=== PATIENT | female | born 1950 | race Caucasian/White ===

== ENCOUNTER 2025-01-25 09:16 | Outpatient (REF) | payer MEDICARE, BC, SELFPAY ==
--- NOTE | ~2025-01-25 | XR_ITS ---
CLINICAL HISTORY: M25.562 - Pain in left knee 3 view left knee Comparison: None Findings: Bones intact. No dislocations. There are osteoarthritic changes involving all 3 compartments and associated with medial joint space narrowing. No joint effusion. No radiopaque foreign body. IMPRESSION: There are osteoarthritic changes involving all 3 compartments and associated with medial joint space narrowing. This document has been electronically signed by: Milton aH MD on 01/27/2025 06:05:44
--- NOTE | ~2025-01-25 | XR_ITS ---
CLINICAL HISTORY: M25.561 - Pain in right knee 3 view right knee Comparison: None Findings: No acute fracture. No dislocation. Degenerative changes in the lateral tibiofemoral compartment and patellofemoral compartment. No erosions. No joint effusion. Atherosclerotic vascular disease. Surgical clips in soft tissues posteromedially. IMPRESSION: 1. No acute findings. 2. Degenerative changes. This document has been electronically signed by: Kait Webster MD on 01/26/2025 17:07:48
--- OUTSIDE RECORDS SUMMARY | 2025-01-26 10:14 | XMS_ITS | Encounter Summary ---
Author Organization [facility] Address [address] [place] [address] Care Team Providers Care Mcat Tutor Name Role Phone Jacquelin Santacruz Primary Care Provider [phone] Encounter Details Date Type Department Care Team (Late st Contact Info) Description 01/14/2024 Orders Only [facility] Interventional Radiology [address] [place] [address] Elvin Rose MD [address] [place], [place] [phone] Social History Tobacco Use Types Packs/Day Years [...] Info) Description 04/13/2025 11:15 AM EDT Appointment [facility] Otolaryngology Clinic [address] [place], [place] [phone] Sander Machine: Clifford Cisneros Jr., MD [address] [place] [address] documented as of this encounter Visit Diagnoses Not on filedocumented in this encounter Care Teams Mcat Tutor Relationship Specialty Start Date End Date Jacquelin Santacruz [address] [place] [address] PCP - General 01/07/24 documented as of this encounter
--- OUTSIDE RECORDS SUMMARY | 2025-01-26 10:14 | XMS_ITS | Clinical Summary ---
Author Organization [facility] Address [address] [place] [address] Care Team Providers Care Food Services Manager Name Role Phone Santacruz Jacquelin Lynn Primary Care Provider [phone] Allergies Active Allergy Reactions Criticality Noted Date [...] 11:59 PM [facility] Hospital Encounter [facility] Otolaryngology Clinic [address] [place] [address] Foreign Student Adviser: Jaelyn Pat, AURORA Santo Squamous cell carcinoma [...] Description 04/13/2025 11:15 AM EDT Appointment [facility] Otol[facility]ology Clinic [address] [place] [address] Foreign Student Adviser: Clifford Cisneros Jr., MD [address] [place] [address] [phone] Health Maintenance Due Date Last Done Comments [...] this topic Medical Devices Implanted Type Area Ornamental Plaster Sticker Device Identifier Shelf Expiration Date Model / Serial / Lot Labor Gang Supervisor Anastomosis Microvascular [place] 4.0mm [place] - [id number] Implanted:Qty: 1 on 02/10/2024 by Jerry Bruce MD at [facility] Implant Left: Neck [employer]OVIS [employer]IANCE 07/01/2028 [id number] / / [id number] Procedures * Due to [place] [employer] law, this organization might not be sharing negative HIV tests. Procedure Name Priority Date/Time Associated Diagnosis Comments BASIC METABOLIC PANEL Routine 02/17/2024 3:19 AM EDT HEMOGLOBIN A1C Routine 02/12/2024 2:51 AM EDT from Last 3 Months or Most Recently Relevant to Health Maintenance Results * Due to [place] [employer] law, this organization might not be sharing negative HIV tests. * (ABNORMAL) Basic Metabolic Panel (02/17/2024 3:19 AM EDT) NA 134(L) 135 - 145 mmol/L 02/17/2024 4:27 AM EDT [facility] K 4.3 3.5 - 5.3 mmol/L 02/17/2024 4:27 AM EDT [facility] Cl 103 97 - 110 mmol/L 02/17/2024 4:27 AM EDT [facility] CO2 23(L) 24 - 32 mmol/L 02/17/2024 4:27 AM EDT [facility] BUN 23 7 - 23 mg/dL 02/17/2024 4:27 AM EDT [facility] Creatinine 0.63 0.50 - 1.20 mg/dL 02/17/2024 4:27 AM EDT [facility] Glucose 248(H) 70 - 99 mg/dL 02/17/2024 4:27 AM EDT [facility] Calcium 8.4(L) 8.7 - 10.7 mg/dL 02/17/2024 4:27 AM EDT [facility] Anion Gap 8 5 - 15 02/17/2024 4:27 AM EDT [facility] eGFR >90 >=60 mL/min/1. 73m2 02/17/2024 4:27 AM EDT [facility] Comment:The estimated glomer ular [...] MD LAB BLOOD ORDERABLES Final Res ult [facility] [address] [place] [address], * (ABNORMAL) Hemoglobin A1c (02/12/2024 2:51 AM EDT) Hemoglobin A1C 7.3(H) <5.7 % of total Hgb 02/18/2024 8:35 AM EDT [facility] Comment: For someone without known diabetes, a [...] (MG/DL) 163 mg/dL 02/18/2024 8:35 AM EDT [facility] eAG (MMOL/L) 9.0 mmol/L 02/18/2024 8:35 AM EDT [facility] Comment: ? This test was performed on the Sal larissa c503 platform. Effective 12/29/23, a change in test platforms from the [place] Tarring Machine Operator to the Sal larissa c503 may have shifted HbA1c results compared to historical results. Based on laboratory validation testing conducted at [facility], the Sal platform relative to the [place] [...] 2:51 AM EDT 02/12/2024 3:02 AM EDT [facility] 02/18/2024 8:35 AM EDT [facility] Received Date: us Lisandro Norwodo NP LAB BLOOD ORDERABLES F inal Result [facility] [place] [address] [facility] 3rd Floor, [place] [address], [facility] [address] [facility] [address], [place] [address], [place] [phone] from Last 3 Months or Most Recently Relevant to Health Maintenance Insurance MEDICARE [facility] FEDERAL Advance Directives Documents on File Type Date Recorded Patient Sales Representative Facility Services Expl anation Health Care Proxy 02/03/2024 10:29 [...] Alternate Health Care Agen t Care Teams Food Services Manager Relationship Specialty Start Date End Date Jacquelin Santacruz [address] [place] [address] PCP - General 01/07/24
--- OUTSIDE RECORDS SUMMARY | 2025-01-26 10:14 | XMS_ITS | Referral Summary ---
Author Organization [facility] Address [address] [place] [address] Care Team Providers Care Event Marketing Intern Name Role Phone Jacquelin Santacruz Leah Primary Care Provider [phone] Encounters Date Type Department Care Team Description 12/16/2024 9:21 AM EST - 12/16/2024 11:59 PM [facility] Hospital Encounter [facility] Otolaryngology Clinic [address] [place] [phone] [place] Machine Operator: Jaelyn Pat, AURORA Santo Squamous cell carcinoma [...] Description 04/13/2025 11:15 AM EDT Appointment [facility] Ot[facility]ology Clinic [address] [place] [address] [place] Machine Operator: Clifford Cisneros Jr., MD [address] [place] [address] Medical Devices Implanted Type Area Rotary Surface Grinder Device Identifier Shelf Expiration Date Model / Serial / Lot Concession Stand Attendant Anastomosis Microvascular [place] 4.0mm [place] - [id number] Implanted:Qty: 1 on 02/10/2024 by Jerry Bruce MD at [facility] Implant Left: Neck [employer]OVIS [employer]IANCE 07/01/2028 [id number] / / [id number] Procedures * Due to [place] [employer] law, this organization might not be sharing negative HIV tests. Procedure Name Priority Date/Time Associated Diagnosis Comments BASIC METABOLIC PANEL Routine 02/17/2024 3:19 AM EDT HEMOGLOBIN A1C Routine 02/12/2024 2:51 AM EDT from Last 3 Months or Most Recently Relevant to Health Maintenance Results * Due to [place] [employer] law, this organization might not be sharing negative HIV tests. * (ABNORMAL) Basic Metabolic Panel (02/17/2024 3:19 AM EDT) NA 134(L) 135 - 145 mmol/L 02/17/2024 4:27 AM EDT [facility] K 4.3 3.5 - 5.3 mmol/L 02/17/2024 4:27 AM EDT [facility] Cl 103 97 - 110 mmol/L 02/17/2024 4:27 AM EDT [facility] CO2 23(L) 24 - 32 mmol/L 02/17/2024 4:27 AM EDT [facility] BUN 23 7 - 23 mg/dL 02/17/2024 4:27 AM EDT [facility] Creatinine 0.63 0.50 - 1.20 mg/dL 02/17/2024 4:27 AM EDT [facility] Glucose 248(H) 70 - 99 mg/dL 02/17/2024 4:27 AM EDT [facility] Calcium 8.4(L) 8.7 - 10.7 mg/dL 02/17/2024 4:27 AM EDT [facility] Anion Gap 8 5 - 15 02/17/2024 4:27 AM EDT [facility] eGFR >90 >=60 mL/min/1. 73m2 02/17/2024 4:27 AM EDT [facility] Comment:The estimated glomer ular [...] MD LAB BLOOD ORDERABLES Final Res ult [facility] [address] [place] [address], * (ABNORMAL) Hemoglobin A1c (02/12/2024 2:51 AM EDT) Hemoglobin A1C 7.3(H) <5.7 % of total Hgb 02/18/2024 8:35 AM EDT [facility] Comment: For someone without known diabetes, a [...] (MG/DL) 163 mg/dL 02/18/2024 8:35 AM EDT [facility] eAG (MMOL/L) 9.0 mmol/L 02/18/2024 8:35 AM EDT [facility] Comment: ? This test was performed on the Sal larissa c503 platform. Effective 12/29/23, a change in test platforms from the [place] School Bus Attendant to the Sal larissa c503 may have shifted HbA1c results compared to historical results. Based on laboratory validation testing conducted at [facility], the Sal platform relative to the [place] [...] AM EDT 02/12/2024 3:02 AM EDT Narrative [facility] - 02/18/2024 8:35 AM EDT [facility] Received Date: us Lisandro Norwood NP LAB BLOOD ORDERABLES F inal Result [facility]ITAL[facility] [address] [facility] 3rd Floor, [place] [address], [facility] [address] [facility] 3rd [address], [place] [address], from Last 3 Months or Most Recently Relevant to Health Maintenance Insurance MEDICARE [facility] FEDERAL Advance Directives Documents on File Type Date Recorded Patient Batting Machine Operator Insulation Expl anation Health Care Proxy 02/03/2024 10:29 [...] Alternate Health Care Agen t Care Teams Event Marketing Intern Relationship Specialty Start Date End Date Jacquelin Santacruz [address] [place] [phone] PCP - General 01/07/24
--- OUTSIDE RECORDS SUMMARY | 2025-01-26 10:14 | XMS_ITS | Encounter Summary ---
Author Organization [facility] Address [address] [place] [address] Care Team Providers Care Recreation Supervisor Name Role Phone Jacquelin Santacruz Leah Primary Care Provider [phone] Encounter Details Date Type Department Care Team (Late st Contact Info) Description 03/23/2024 Orders Only [facility] Interventional Radiology [address] [place] [address] Naveed Florence MD [address] [place], [place] [phone] Social History Tobacco Use Types Packs/Day Years [...] Info) Description 04/13/2025 11:15 AM EDT Appointment [facility] Otolaryngology Clinic [address] [place] [address] Catalogue Maker: Clifford Cisneros Jr., MD [address] [place] [phone] documented as of this encounter Visit Diagnoses Not on filedocumented in this encounter Care Teams Recreation Supervisor Relationship Specialty Start Date End Date Jacquelin Santacruz [address] [place] [address] PCP - General 01/07/24 documented as of this encounter
--- OUTSIDE RECORDS SUMMARY | 2025-01-26 10:14 | XMS_ITS ---
Author Organization [facility] Address [address] [place] [address] Care Team Providers Care Recording Studio Intern Name Role Phone Jacquelin Santacruz Leah Primary Care Provider [phone] Active Problems Problem Noted Date Diagnosed Date [...] TotalDLP 749 mGy 749 mGy 0 mGy [id number] 9.3 mSv 9.3 mSv 0 mSv CTDIvol Max 23.8 mGy 23.8 mGy 0 mGy CTDIvol Min 23.8 mGy 23.8 mGy 0 mGy
--- OUTSIDE RECORDS SUMMARY | 2025-01-26 10:14 | XMS_ITS | Encounter Summary ---
Author Organization [facility] Address [address] [place] [address] Care Team Providers Care Box Finisher Name Role Phone Jacquelin Santacruz Primary Care Provider [phone] Encounter Details Date Type Department Care Team (Late st Contact Info) Description 06/14/2024 Orders Only [facility] Interventional Radiology [address] [place] [address] Dereje Bravo MD [address] [place] [address] [phone] Social History Tobacco Use Types Packs/Day Years [...] Info) Description 04/13/2025 11:15 AM EDT Appointment [facility] Otolaryngology Clinic [address] [place] [address] Cook At School: Clifford Cisneros Jr., MD [address] [place] [address] documented as of this encounter Visit Diagnoses Not on filedocumented in this encounter Care Teams Box Finisher Relationship Specialty Start Date End Date Jacquelin Santacruz [address] [place] [address] PCP - General 01/07/24 documented as of this encounter
== END 2025-01-25 09:17 | disposition home or self-care (01) ==
LOC: HO.HOSX 09:16
PROVIDERS: Visit Provider Orthopaedic Surgery
DX: M25.561 Pain in right knee (principal); M25.562 Pain in left knee; M17.0 Bilateral primary osteoarthritis of knee
CPT/HCPCS: 73562; 99202

== ENCOUNTER 2025-01-25 09:42 | Outpatient (AMB) | payer MEDICARE, SELFPAY ==
--- NOTE | 2025-01-25 09:48 | A.OFFVIS_ITS ---
Vital Signs 01/25/25 09:58 Height 5 ft 3 in Weight 162 lb BMI 28.7 Intake Visit Reasons: Bilateral knee pains Intake Note: Rosario is a 74 year old female who presents with complaints of progressively worsening bilateral knee pains. She describes her pains as sharp and severe in nature. Her pains have gotten worse over the last 5 years in spite of continued non operative treatments. She has had cortisone injections in the past given by another provider. She states that the most recent cortisone injections gave her no relief. She has failed the last 3 months of conservative treatment which has included a home exercise program, physical therapy exercises, Tylenol, anti- inflammatory medicines and topical creams. She wishes to hold off on total knee replacement surgery if at all possible. At this point her bilateral knee pains are interfering with her activities of daily living and her ability to sleep well through the night. Allergies celecoxib [From CELEBREX] Allergy (Unknown, Unverified 01/25/25 09:51) HIVES Sulfa (Sulfonamide Antibiotics) [SULFA(SULFONAMIDE ANTIBIOTICS)] Allergy (Unknown, Unverified 01/25/25 09:51) HIVES Medication List - Last Reconciled 01/25/25 by Pieter Nation MD acetaminophen (Tylenol Extra Strength) 500 mg PO ONCE PRN aspirin 81 mg PO DAILY dulaglutide (Trulicity) mg subcut QWEEK levothyroxine 100 mcg PO DAILY metformin 1,000 mg PO BID metoprolol tartrate mg PO pantoprazole 40 mg PO DAILY rosuvastatin 40 mg PO DAILY Physical Exam Vital Signs: BMI result Body Mass Index 28.7 Const Other: Well-nourished well-developed very friendly female awake alert and oriented x3 in no acute distress Extrem Other: Bilateral lower extremity examination shows good capillary refill, no skin lesions noted, normal sensation light touch Bilateral knee examination shows minimal effusions, palpable crepitus with range of motion, pain with range of motion, no instability Results Reviewed Results Reviewed: X-rays of the patient's bilateral knee show joint space narrowing, subchondral sclerosis, no acute bony abnormalities Assessment & Plan Assessment & Plan (1) Osteoarthritis of left knee: Code(s): M17.12 - Unilateral primary osteoarthritis, left knee Category: Medical (2) Osteoarthritis of right knee: Code(s): M17.11 - Unilateral primary osteoarthritis, right knee Category: Medical Plan Ms. Mejía presents with progressively worsening bilateral knee pains due to osteoarthritis. I had a lengthy discussion with the patient regarding the treatment options. She wishes to hold off on surgery for as long as possible. I agree with this plan. She has not gotten good relief from cortisone injections in the past. Thus, I will see whether or not the patient's insurance company will cover a viscosupplementation injection, such as Durolane, for both of her knees. I will see her back once the injections are available. If she fails continued non operative treatments we will further discuss the risks and benefits of total knee replacement surgery. Feel free to call me at any time should questions regarding her orthopedic management arise. Thank you very much for asking me to see this very friendly patient. I spent 22 minutes in reviewing the patient's records and imaging studies, seeing the patient and documenting in the medical record. Orders: Orders XR knee LT 3V Today M25.562 - Pain in left knee XR knee RT 3V Today M25.561 - Pain in right knee Coding Level of Care Code New Pt Level 3 (51986) Complex EM visit Add On G2211 Diagnoses Osteoarthritis of left knee M17.12 Osteoarthritis of right knee M17.11
[2025-01-25 09:58] VITALS: BMI 28.7
--- OUTSIDE RECORDS SUMMARY | 2025-01-25 11:07 | XMS_ITS | Encounter Summary ---
Author Organization [facility] Address [address] [place] [address] Care Team Providers Care Paralegal Internship Name Role Phone Jacquelin Santacruz Primary Care Provider [phone] Encounter Details Date Type Department Care Team (Late st Contact Info) Description 01/14/2024 Orders Only [facility] Interventional Radiology [address] [place] [address] Elvin Rose MD [address] [place], [place] [phone] Social History Tobacco Use Types Packs/Day Years Used Date Smoking Tobacco: Former Cigarettes Smokeless Tobacco: Never Alcohol Use Standard Drinks/Week Comments Not Currently 0 (1 standard drink = 0.6 oz pur e alcohol) Comments Unknown Sex and Gender Information Value Date Recorded Sex Assigned at Female 02/05/2024 10:13 AM EDT Legal Sex Female 4:20 PM EDT Gender Identity Female 02/05/2024 10:13 AM EDT Sexual Orientation Straight 02/05/2024 10 :13 AM EDT documented as of this encounter Plan of Treatment Upcoming Encounters Date Type Department Care Team (Late st Contact Info) Description 04/13/2025 11:15 AM EDT Appointment [facility] Otolaryngology Clinic [address], [place] [phone] Endocrinology Nurse: Clifford Cisneros Jr., MD [address] [place] [phone] documented as of this encounter Visit Diagnoses Not on filedocumented in this encounter Care Teams Paralegal Internship Relationship Specialty Start Date End Date Jacquelin Santacruz [address] [place] [address] PCP - General 01/07/24 documented as of this encounter
--- OUTSIDE RECORDS SUMMARY | 2025-01-25 11:07 | XMS_ITS | Encounter Summary ---
Author Organization [facility] Address [address] [place] [address] Care Team Providers Care Primer Inserting Machine Operator Name Role Phone Jacquelin Santacruz Leah Primary Care Provider [phone] Encounter Details Date Type Department Care Team (Late st Contact Info) Description 03/23/2024 Orders Only [facility] Interventional Radiology [address] [place] [phone] Naveed Florence MD [address] [place], [place] [phone] Social History Tobacco Use Types Packs/Day Years Used Date Smoking Tobacco: Former Cigarettes 1 40 1 965 - 2005 Smokeless Tobacco: Never Alcohol Use Standard Drinks/Week Comments Not Currently 0 (1 standard drink = 0.6 oz pur e alcohol) Comments No Sex and Gender Information Value Date Recorded Sex Assigned at Female 02/05/2024 10:13 AM EDT Legal Sex Female 4:20 PM EDT Gender Identity Female 02/05/2024 10:13 AM EDT Sexual Orientation Straight 02/05/2024 10 :13 AM EDT documented as of this encounter Plan of Treatment Upcoming Encounters Date Type Department Care Team (Late st Contact Info) Description 04/13/2025 11:15 AM EDT Appointment [facility] Otolaryngology Clinic [address] [place] [address] Vegetable Worker: Clifford Cisneros Jr., MD [address] [place] [phone] documented as of this encounter Visit Diagnoses Not on filedocumented in this encounter Care Teams Primer Inserting Machine Operator Relationship Specialty Start Date End Date Jacquelin Santacruz [address] [place] [address] PCP - General 01/07/24 documented as of this encounter
--- OUTSIDE RECORDS SUMMARY | 2025-01-25 11:07 | XMS_ITS | Encounter Summary ---
Author Organization [facility] Address [address] [place] [address] Care Team Providers Care Paint Maker Name Role Phone Jacquelin Santacruz Primary Care Provider [phone] Encounter Details Date Type Department Care Team (Late st Contact Info) Description 06/14/2024 Orders Only [facility] Interventional Radiology [address] [place] [phone] Dereje Bravo MD [address] [place] [address] [phone] Social History Tobacco Use Types Packs/Day Years [...] Info) Description 04/13/2025 11:15 AM EDT Appointment [facility] Otolaryngology Clinic [address] [place] [address] President Ceo & Founder: Clifford Cisneros Jr., MD [address] [place] [address] documented as of this encounter Visit Diagnoses Not on filedocumented in this encounter Care Teams Paint Maker Relationship Specialty Start Date End Date Jacquelin Santacruz [address] [place] [address] PCP - General 01/07/24 documented as of this encounter
--- OUTSIDE RECORDS SUMMARY | 2025-01-25 11:07 | XMS_ITS ---
Author Organization [facility] Address [address] [place] [address] Care Team Providers Care Motel Front Desk Attendant Name Role Phone Jacquelin Santacruz Leah Primary Care Provider Active Problems Problem Noted Date Diagnosed Date Hypothyroid 02/11/2024 Status post tracheostomy 02/11/2024 Squamous cell carcinoma of floor of mouth 2023 Primary osteoarthritis of right knee 08/02/2021 Overview (02/11/2024): Last Assessment & Plan: See #1 for details Vitamin D insufficiency 08/02/2021 Overview (02/11/2024): Last Assessment & Plan: Increase daily vitamin D to 3000 units daily until the end of December 2021 to optimize serum level. Primary osteoarthritis of left knee 04/26/2021 Overview (02/11/2024): Last Assessment & Plan: Procedure: After an informed oral consent, under sterile conditions using Ethyl chloride spray for local anesthesia I have injected 40 mg DepoMedrol and 2 cc 1% Lidocaine into Left knee from medial approach uneventfully. Details of post-procedure care were explained to the patient in the office and given in writing. Provider: Dede Hope MD Patient: Rosario Mejía : 1950 Date: 09/03/2021 Lumbar spinal stenosis 06/21/2019 Overview (02/11/2024): Last Assessment & Plan: As I explained to her today I am suspicious that her bilateral nocturnal lower extremity pain is secondary to radiculopathy from her lumbar spinal stenosis. I reviewed her 2019 lumbar MRI indicating progressive anterolisthesis of L5 on S1 as well as compression of L3 and L4 nerve root secondary to ligamentum flavum hypertrophy as well as swollen disc material and facet arthropathy. Appropriate sleep position, use of tramadol was discussed and an office visit will be arranged to discern the contribution of pain from radiculopathy and from primary knee disease. All questions were answered and 15 minutes were spent on this telephone/telemedicine visit in direct contact with the patient. 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 She should remain on aspirin lifelong. We'll continue to optimize her other cardiac risk factors. Reviewed recent echo and stress test. Patient denies any progressive dyspnea, states breathing is the same as it has been for many years. Benign essential hypertension 01/15/2018 Overview (02/11/2024): Last Assessment & Plan: Good control on current antihypertensive regimen. No changes indicated today. Type 2 diabetes mellitus without complication Overview (02/11/2024): Last Assessment & Plan: Needs better glycemic control. Goal A1c less than 7. Muscle cramps 11/20/2017 Overview (02/11/2024): Last Assessment & Plan: Proper hydration, well-balanced nutritionally diet-rich in fruits, vegetables, vitamins, micro and ultra elements. Gentle, regular stretching, muscle strengthening exercises. Carefully continue warm bath or shower and magnesium tablet at nighttime in addition to consideration for assuring proper iron intake and if not better formal sleep study to check for restless leg syndrome Rheumatoid arthritis 11/20/2017 Overview (02/11/2024): Last Assessment & Plan: Generally stable and not in need of disease modifying antirheumatic drugs. She will call me if she has a painful flare. Hyperlipidemia 10/21/2017 Overview (02/11/2024): Last Assessment & Plan: Triglycerides are still elevated but much improved since last lipid panel profile. LDL at 6. Discussed better glycemic control will help to further normalize triglyceride levels. Current Treatment and Therapy Plans No current plan information found. Past Treatment and Therapy Plans No past plan information found. Lifetime Dose Tracking * Chemical Lifetime Dose Automatic Entry Manual Entr y TotalDLP 749 mGy 749 mGy 0 mGy CNHS280 9.3 mSv 9.3 mSv 0 mSv CTDIvol Max 23.8 mGy 23.8 mGy 0 mGy CTDIvol Min 23.8 mGy 23.8 mGy 0 mGy
--- OUTSIDE RECORDS SUMMARY | 2025-01-25 11:07 | XMS_ITS | Clinical Summary ---
Author Organization [facility] Address [address] [place] [address] Care Team Providers Care Engraver Set Up Operator Name Role Phone Santacruz Jacquelin Lynn Primary Care Provider [phone] Allergies Active Allergy Reactions Criticality Noted Date Comments Celecoxib Dermatitis Medium 11/20/2017 Medications levothyroxine (SYNTHROID, LEVOTHROID) 137 mcg tablet 1 tablet on an empty stomach in the morning Active metFORMIN (GLUCOPHAGE) 1,000 mg tablet Take 1 tablet by mouth 2 times a day. Active metoprolol tartrate (LOPRESSOR) 100 mg tablet Take 100 mg by mouth 3 times daily. 03/12/[address] (PROTONIX) 40 mg tablet Take 40 mg by mouth once a day. Active cyanocobalamin 1,000 mcg tablet Take 500 mcg by mouth daily. Active rosuvastatin (CRESTOR) 40 mg tablet Take 1 tablet by mouth once a day. 07/18/2023 Active aspirin 81 mg EC tablet Take 81 mg by mouth daily. Active cholecalciferol (VITAMIN D3) 2,000 unit capsule Take by mouth 2 times daily. Active diphenhydrAMINE -acetaminophen (Tylenol PM Extra Strength) 25-500 mg tablet Take 1 tablet by mouth once daily as needed. Active multivitamin (THERAGRAN) tablet Take 1 tablet by mouth once a day. Active Trulicity 0.75 mg/0.5 mL injection dose SMARTSI Pre-Filled Pen Syringe SUB-Q Once a Week 05/24/2024 Active Active Problems Problem Noted Date Diagnosed Date [...] will help to further normalize triglyceride levels. Encounters Date Type Department Care Team Description 12/16/2024 9:21 AM EST - 12/16/2024 11:59 PM [facility] Hospital Encounter [facility] Otolaryngology Clinic [address] [place] [phone] Community Marketing Manager: Jaelyn Pat, [facility] Squamous cell carcinoma of floor of mouth (Primary Dx) Discharge Disposition: Home or Self Care (01) from Last 3 Months Family History Medical History Relation Name Comments Alcohol abuse Father Cancer Mother colon Relation Name Status Comments Father Mother Social History Tobacco Use Types Packs/Day Years Used Date Smoking Tobacco: Former Cigarettes 1 40 1 965 - 2005 Smokeless Tobacco: Never Tobacco Cessation:Counseling Given: Not Answered Alcohol Use Standard Drinks/Week Comments Not Currently 0 (1 standard drink = 0.6 oz pur e alcohol) Comments No Sex and Gender Information Value Date Recorded Sex Assigned at Female 02/05/2024 10:13 AM EDT Legal Sex Female 4:20 PM EDT Gender Identity Female 02/05/2024 10:13 AM EDT Sexual Orientation Straight 02/05/2024 10 :13 AM EDT Last Filed Vital Signs Vital Sign Reading Time Taken Comments Blood Pressure 123/76 07/07/2024 11:23 AM EDT Pulse 89 07/07/2024 11:23 AM EDT Temperature 36.6 ??C (97.9 ??F) 07/07/2024 11:23 AM E DT Respiratory Rate 17 02/19/2024 1:17 PM EDT Oxygen Saturation 97% 03/29/2024 3:14 PM EDT Inhaled Oxygen Concentration - - Weight 83.2 kg (183 lb 6.8 oz) 02/19/2024 5:34 A M EDT Height 163 cm (5' 4.17 ) 02/17/2024 2:00 PM EDT Body Mass Index 31.31 02/17/2024 2:00 PM EDT Plan of Treatment Upcoming Encounters Date Type Department Care Team (Late st Contact Info) Description 04/13/2025 11:15 AM EDT Appointment [facility] Otolaryngology Clinic [address] [place] [phone] Community Marketing Manager: Clifford Cisneros Jr., MD [address] [place] [phone] Health Maintenance Due Date Last Done Comments Cologuard 1950 Colon Cancer Screening 1950 Colonoscopy 1950 FOBT / Fit Test 1950 Hepatitis C Screening 1950 Sigmoidoscopy 1950 Medicare AWV 1951 Ophthalmology Exam 1961 Urine Microalbumin 1961 Mammogram 1991 Alcohol/Substance Use Screening 10/27/2024 09/08/2024 Depression Screening and Follow-Up 10/27/2024 Health Care Proxy Review 10/27/2024 Social Drivers of Health Annual Screening 10/27/2024 COVID-19 Vaccine (8 - Pfizer risk 2023- season) 2024 06/30/2024, 08/02/2023, 08/02/2023, Additional history exists Hemoglobin A1C 01/02/2025 07/05/2024, 02/12/2024 Basic Metabolic Panel 08/01/2025 08/01/2024 , 07/05/2024, 02/17/2024, Additional history exists DTaP,Tdap,and Td Vaccines (4 - Td or Tdap) 09/30/2032 09/30/2022, 08/22/2012, 03/28/2009 Zoster Vaccines Completed 07/09/2021, 04/26, 09/01/2012 Pneumococcal Vaccine: 50+ Years Completed 09/26/2021, 09/29/2018, 10/17/2015 RSV Vaccine (60+ years old and patients) Completed 07/21/2023 Osteoporosis Screening Completed 08/27/2023 Influenza Vaccine Completed 06/30/2024, , 08/19/2022, Additional history exists Hepatitis B Vaccines Aged Out No long er eligible based on patient's age to complete this topic Medical Devices Implanted Type Area Analyst Microbiology Lab Device Identifier Shelf Expiration Date Model / Serial / Lot Perinatal Technician Anastomosis Microvascular [place] 4.0mm [place] - [id number] Implanted:Qty: 1 on 02/10/2024 by Jerry Bruce MD at [facility] Implant Left: Neck [employer] 07/01/2028 [id number] / / [id number] Procedures * Due to [place] [employer] law, this organization might not be sharing negative HIV tests. Procedure Name Priority Date/Time Associated Diagnosis Comments BASIC METABOLIC PANEL Routine 02/17/2024 3:19 AM EDT HEMOGLOBIN A1C Routine 02/12/2024 2:51 AM EDT from Last 3 Months or Most Recently Relevant to Health Maintenance Results * Due to [place] [employer] law, this organization might not be sharing negative HIV tests. * (ABNORMAL) Basic Metabolic Panel (02/17/2024 3:19 AM EDT) NA 134(L) 135 - 145 mmol/L 02/17/2024 4:27 AM EDT [facility] K 4.3 3.5 - 5.3 mmol/L 02/17/2024 4:27 AM EDT [facility] Cl 103 97 - 110 mmol/L 02/17/2024 4:27 AM EDT [facility] CO2 23(L) 24 - 32 mmol/L 02/17/2024 4:27 AM EDT [facility] BUN 23 7 - 23 mg/dL 02/17/2024 4:27 AM EDT [facility] Creatinine 0.63 0.50 - 1.20 mg/dL 02/17/2024 4:27 AM EDT [facility] Glucose 248(H) 70 - 99 mg/dL 02/17/2024 4:27 AM EDT [facility] Calcium 8.4(L) 8.7 - 10.7 mg/dL 02/17/2024 4:27 AM EDT [facility] Anion Gap 8 5 - 15 02/17/2024 4:27 AM EDT [facility] eGFR >90 >=60 mL/min/1. 73m2 02/17/2024 4:[address] [facility] Comment:The estimated glomer ular filtration rate (eGFR) is calculated using a new formula developed by the NKF-ASN task force to eliminate race-based correction factors. The new formula uses serum/plasma creatinine, age, and gender to determine eGFR. A value below 60mls/min might indicate kidney disease and will be flagged. For additional information, see Brunilda et al, Am J Kidney Dis. 2021;79(2):268- 288, A Unifying Approach for GFR estimation: Recommendations of the NKF-ASN Task Force on Reassessing the Inclusion of Race in Diagnosing Kidney Disease . Blood Structure of peripheral vein / Unknown Venipuncture / Unknown 02/17/2024 3:19 AM EDT 02/17/2024 3:56 AM EDT us Juan Clark MD LAB BLOOD ORDERABLES Final Res ult [facility] [address] [place] [address], * (ABNORMAL) Hemoglobin A1c (02/12/2024 2:51 AM EDT) Hemoglobin A1C 7.3(H) <5.7 % of total Hgb 02/18/2024 8:35 AM EDT [facility] Comment: For someone without known diabetes, a hemoglobin A1c value of 6.5% or greater indicates that they may have diabetes and this should be confirmed with a follow-up test. For someone with known diabetes, a value <7% indicates that their diabetes is well controlled and a value greater than or equal to 7% indicates suboptimal control. A1c targets should be individualized based on duration of diabetes, age, comorbid conditions, and other considerations. Currently, no consensus exists regarding use of hemoglobin A1c for diagnosis of diabetes for children. ?? eAG (MG/DL) 163 mg/dL 02/18/2024 8:35 AM EDT [facility] eAG (MMOL/L) 9.0 mmol/L 02/18/2024 8:35 AM EDT [facility] Comment: ? This test was performed on the [employer] larissa c503 platform. Effective 12/29/23, a change in test platforms from the [place] [facility] to the [employer] larissa c503 may have shifted HbA1c results compared to historical results. Based on laboratory validation testing conducted at [facility], the Sal platform relative to the [place] platform had an average increase in HbA1c value of < or = 0.3%. This difference is within accepted variability established by the National Glycohemoglobin Standardization Program. Note that not all individuals will have had a shift in their results and direct comparisons between historical and current results for testing conducted on different platforms is not recommended. Blood Structure of peripheral vein / Unknown Venipuncture / Unknown 02/12/2024 2:51 AM EDT 02/12/2024 3:02 AM EDT [facility] 02/18/2024 8:35 AM EDT [facility] Received Date: us Lisandro Norwood NP LAB BLOOD ORDERABLES F inal Result DAISY [facility]NER [address], [place] [address], MyPublisher [facility] [address], [place] [address], [place] [phone] from Last 3 Months or Most Recently Relevant to Health Maintenance Insurance MEDICARE [facility] [employer] Advance Directives Documents on File Type Date Recorded Patient Field Instructor Expl anation Health Care Proxy 02/03/2024 10:29 AM 4 HEALTH CARE PROXY SCANNED IN * Full Code (Latest Code Status on File) Date Activated Date Inactivated Comments 02/10/2024 1:10 PM 02/19/2024 6:00 PM * Full Code Date Activated Date Inactivated Comments 02/10/2024 1:10 PM 02/10/2024 1:10 PM * Full Code Date Activated Date Inactivated Comments 02/10/2024 5:36 AM 02/10/2024 1:10 PM Healthcare Agents on File Name Relationship Healthcare Agent Relationship Communication Enriqueta Cueto Daughter Health Care Agent Eligio Chaparro Partner Alternate Health Care Agen t Care Teams Engraver Set Up Operator Relationship Specialty Start Date End Date Jacquelin Santacruz [address] [place] [phone] PCP - General 01/07/24
--- OUTSIDE RECORDS SUMMARY | 2025-01-25 11:07 | XMS_ITS | Referral Summary ---
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 Social History Tobacco Use Types Packs/Day Years [...] Info) Description 04/13/2025 11:15 AM EDT Appointment [facility] [address] [place] [address] Store Operations Specialist: Clifford Cisneros Jr., MD [address] [place] [address] Medical Devices Implanted Type Area Taper Machine Device Identifier Shelf Expiration Date Model / Serial / Lot Centrifugal Extractor Operator Anastomosis Microvascular [place] 4.0mm Lawrence - [id number] Implanted:Qty: 1 on 02/10/2024 by Jerry Bruce MD at [facility] Implant Left: Neck [employer]IANCE 07/01/2028 [id number] / / [id number] Procedures * Due to [place] [employer] law, this organization might not be sharing negative HIV tests. Procedure Name Priority Date/Time Associated Diagnosis Comments BASIC METABOLIC PANEL Routine 02/17/2024 3:19 AM EDT HEMOGLOBIN A1C Routine 02/12/2024 2:51 AM EDT from Last 3 Months or Most Recently Relevant to Health Maintenance Results * Due to [place] [employer] law, this organization might not be sharing negative HIV tests. * (ABNORMAL) Basic Metabolic Panel (02/17/2024 3:19 AM EDT) NA 134(L) 135 - 145 mmol/L 02/17/2024 4:27 AM EDT [facility] K 4.3 3.5 - 5.3 mmol/L 02/17/2024 4:27 AM EDT [facility] Cl 103 97 - 110 mmol/L 02/17/2024 4:27 AM EDT [facility] CO2 23(L) 24 - 32 mmol/L 02/17/2024 4:27 AM EDT [facility] BUN 23 7 - 23 mg/dL 02/17/2024 4:27 AM EDT [facility] Creatinine 0.63 0.50 - 1.20 mg/dL 02/17/2024 4:27 AM EDT [facility] Glucose 248(H) 70 - 99 mg/dL 02/17/2024 4:27 AM EDT [facility] Calcium 8.4(L) 8.7 - 10.7 mg/dL 02/17/2024 4:27 AM EDT [facility] Anion Gap 8 5 - 15 02/17/2024 4:27 AM EDT [facility] eGFR >90 >=60 mL/min/1. 73m2 02/17/2024 4:27 AM EDT [facility] Comment:The estimated glomer ular [...] MD LAB BLOOD ORDERABLES Final Res ult [facility] [address] [place] [address], * (ABNORMAL) Hemoglobin A1c (02/12/2024 2:51 AM EDT) Hemoglobin A1C 7.3(H) <5.7 % of total Hgb 02/18/2024 8:35 AM EDT [facility] Comment: For someone without known diabetes, a [...] (MG/DL) 163 mg/dL 02/18/2024 8:35 AM EDT [facility] eAG (MMOL/L) 9.0 mmol/L 02/18/2024 8:35 AM EDT [facility] Comment: ? This test was performed on the Sal larissa c503 platform. Effective 12/29/23, a change in test platforms from the [place] Hay Farmer to the Sal larissa c503 may have shifted HbA1c results compared to historical results. Based on laboratory validation testing conducted at [facility], the Sal platform relative to the [place] [...] 2:51 AM EDT 02/12/2024 3:02 AM EDT Narrative [facility] - 02/18/2024 8:35 AM EDT [facility] Received Date: us Lisandro Norwood NP LAB BLOOD ORDERABLES F inal Result [facility] [address] [facility] [address]rd Floor, [place] [address], [facility] [address] [facility] 3rd Floor, [place] [address], from Last 3 Months or Most Recently Relevant to Health Maintenance Insurance MEDICARE [facility] FEDERAL Advance Directives Documents on File Type Date Recorded Patient Returned Item Clerk Expl anation Health Care Proxy 02/03/2024 10:29 [...] Alternate Health Care Agen t Care Teams Shoe Patternmaker Relationship Specialty Start Date End Date Jacquelin Santacruz [address] [place] [phone] PCP - General 01/07/24
--- OUTSIDE RECORDS SUMMARY | 2025-01-25 11:07 | XMS_ITS ---
[facility] Name [facility] Encounters Encounter Type Encounter Reason Primary Diagnosis Location Date Emergency ABDOMINAL PAIN Unspecified abdo geri pain [facility] 08/01/2024 Care Team Organization Name Specialty Phone Email Start Date End Da te Terminated: [facility] 08/01/2024
== END 2025-01-25 10:16 | disposition home or self-care (01) ==
LOC: HO.HOS 09:42
PROVIDERS: PCP Internal Medicine; Visit Provider Orthopaedic Surgery
DX: M17.0 Bilateral primary osteoarthritis of knee (principal)
CPT/HCPCS: 99203; G2211

== ENCOUNTER → 2025-01-25 09:44 | Outpatient (BNV) | payer MEDICARE, BC, SELFPAY | PROVIDERS: Visit Provider Specialist | DX: M17.11 Unilateral primary osteoarthritis, right knee (principal) | CPT/HCPCS: 73562 ==

== ENCOUNTER 2025-02-02 09:51 | Outpatient (AMB) | payer MEDICARE, BC, SELFPAY ==
--- NOTE | 2025-02-02 09:55 | MHC.OFFVIS ---
Intake Visit Reasons: Bilateral knee pains Intake Note: Rosario is a 74 year old female who presents with complaints of progressively worsening bilateral knee pains. She describes her pains as sharp in nature. She has failed the last 3 months of conservative treatment which has included Tylenol, anti-inflammatory medicines and a home exercise program. She has had cortisone injections in the past which gave her minimal relief. She wishes to hold off on surgery if at all possible. Her bilateral knee pains are now interfering with her activities of daily living and her ability to sleep well through the night. Allergies celecoxib [From CELEBREX] Allergy (Unknown, Verified 02/02/25 09:58) HIVES Sulfa (Sulfonamide Antibiotics) [SULFA(SULFONAMIDE ANTIBIOTICS)] Allergy (Unknown, Verified 02/02/25 09:58) HIVES Medication List - Last Reconciled 02/02/25 by Pieter Nation MD acetaminophen (Tylenol Extra Strength) 500 mg PO ONCE PRN aspirin 81 mg PO DAILY dulaglutide (Trulicity) mg subcut QWEEK levothyroxine 100 mcg PO DAILY metformin 1,000 mg PO BID metoprolol tartrate mg PO pantoprazole 40 mg PO DAILY rosuvastatin 40 mg PO DAILY Physical Exam Const Other: Well-nourished well-developed very friendly female awake alert and oriented x3 in no acute distress Extrem Other: Bilateral lower extremity examination shows good capillary refill, no skin lesions noted, normal sensation light touch Bilateral knee examination shows minimal effusions, palpable crepitus range of motion, pain with range of motion, no instability Office Procedures AMB Joint Injection/Aspiration Joint Injection/Aspiration Primary Site: left knee Prep: site was prepped using aseptic technique Injected: 60 mg of (Durolane viscosupplementation) and 1% plain lidocaine Procedure: The patient tolerated the procedure well Coding 82798 - Large joint Procedure code (CPT) selection complete AMB Joint Injection/Aspiration Joint Injection/Aspiration Primary Site: right knee Prep: site was prepped using aseptic technique Injected: 60 mg of (Durolane viscosupplementation) and 1% plain lidocaine Procedure: The patient tolerated the procedure well Coding 73965 - Large joint Procedure code (CPT) selection complete Results Reviewed Results Reviewed: X-rays of the patient's bilateral knees taken previously show joint space narrowing, subchondral sclerosis, no acute bony abnormalities Assessment & Plan Assessment & Plan (1) Osteoarthritis of left knee: Code(s): M17.12 - Unilateral primary osteoarthritis, left knee Category: Medical (2) Osteoarthritis of right knee: Code(s): M17.11 - Unilateral primary osteoarthritis, right knee Category: Medical Plan Ms. Mejía presents with bilateral knee pains due to osteoarthritis. The risks and benefits of bilateral knee Durolane viscosupplementation injections were discussed at length with the patient. The patient wished to proceed. She tolerated the injections well. She will continue with her home exercise program. She will contact me prior to her follow-up appointment in 3 months should any questions or concerns arise. Feel free to call me at any time should questions regarding her orthopedic management arise. I spent 20 minutes in reviewing the patient's records and imaging studies, seeing the patient and documenting in the medical record. Orders: Orders AMB Joint Injection/Aspiration Today M17.12 - Unilateral primary osteoarthritis, left knee AMB Joint Injection/Aspiration Today M17.11 - Unilateral primary osteoarthritis, right knee Coding Level of Care Code Est Pt Level 3 (69380) Complex EM visit Add On G2211 Diagnoses Osteoarthritis of left knee M17.12 Osteoarthritis of right knee M17.11 CPT Codes Coding - 61176 Large joint: 87815 - Large joint ([id number]) Coding - 53501 Large joint: 66623 - Large joint ([id number])
--- OUTSIDE RECORDS SUMMARY | 2025-02-02 10:51 | XMS_ITS | Referral Summary ---
Author Organization [facility] Address [address] [place] [address] Care Team Providers Care Geophysical Prospector Name Role Phone Jacquelin Santacruz Leah Primary Care Provider [phone] Encounters Date Type Department Care Team Description 12/16/2024 9:21 AM EST - 12/16/2024 11:59 PM [facility] Hospital Encounter [facility] [address] [place] [address] [phone] Registered Nurse Hh Case Manager: Jaelyn Pat, AURORA Santo Squamous cell [...] Info) Description 04/13/2025 11:15 AM EDT Appointment [facility] [address] [place] [address] Registered Nurse Hh Case Manager: Clifford Cisneros Jr., MD [address] [place] [address] Medical Devices Implanted Type Area Industrial Servicer Device Identifier Shelf Expiration Date Model / Serial / Lot Human Resources Partner Anastomosis Microvascular Covel 4.0mm [place] - [id number] Implanted:Qty: 1 on 02/10/2024 by Jerry Bruce MD at [facility] Implant Left: Neck [employer] ALLIANCE 07/01/2028 [id number] / / [id number] Procedures * Due to [place] foodjunky law, this organization might not be sharing negative HIV tests. Procedure Name Priority Date/Time Associated Diagnosis Comments BASIC METABOLIC PANEL Routine 02/17/2024 3:19 AM EDT HEMOGLOBIN A1C Routine 02/12/2024 2:51 AM EDT from Last 3 Months or Most Recently Relevant to Health Maintenance Results * Due to [place] foodjunky law, this organization might not be sharing negative HIV tests. * (ABNORMAL) Basic Metabolic Panel (02/17/2024 3:19 AM EDT) NA 134(L) 135 - 145 mmol/L 02/17/2024 4:27 AM EDT [facility] K 4.3 3.5 - 5.3 mmol/L 02/17/2024 4:27 AM EDT [facility] Cl 103 97 - 110 mmol/L 02/17/2024 4:27 AM EDT [facility] CO2 23(L) 24 - 32 mmol/L 02/17/2024 4:27 AM EDT [facility] BUN 23 7 - 23 mg/dL 02/17/2024 4:27 AM EDT [facility] Creatinine 0.63 0.50 - 1.20 mg/dL 02/17/2024 4:27 AM EDT [facility] Glucose 248(H) 70 - 99 mg/dL 02/17/2024 4:27 AM EDT [facility] Calcium 8.4(L) 8.7 - 10.7 mg/dL 02/17/2024 4:27 AM EDT [facility] Anion Gap 8 5 - 15 02/17/2024 4:27 AM EDT [facility] eGFR >90 >=60 mL/min/1. 73m2 02/17/2024 4:27 AM EDT [facility] Comment:The estimated glomer [...] MD LAB BLOOD ORDERABLES Final Res ult [facility] [address] [place] [address], * (ABNORMAL) Hemoglobin A1c (02/12/2024 2:51 AM EDT) Hemoglobin A1C 7.3(H) <5.7 % of total Hgb 02/18/2024 8:35 AM EDT [facility] Comment: For someone without known diabetes, a [...] (MG/DL) 163 mg/dL 02/18/2024 8:35 AM EDT [facility] eAG (MMOL/L) 9.0 mmol/L 02/18/2024 8:[address] [facility] Comment: ? This test was performed on the Sal larissa c503 platform. Effective 12/29/23, a change in test platforms from the [place] Sewing Machine Operator Semiautomatic to the Sal larissa c503 may have shifted HbA1c results compared to historical results. Based on laboratory validation testing conducted at [facility], the Sal platform relative to the [place] [...] AM EDT 02/12/2024 3:02 AM EDT Narrative [facility] - 02/18/2024 8:35 AM EDT [facility] Received Date: us Lisandro Norwood NP LAB BLOOD ORDERABLES F inal Result [facility] [address] [facility] [address], [place] [address], [facility] [address] [facility] [address], [place] [address], from Last 3 Months or Most Recently Relevant to Health Maintenance Insurance MEDICARE [facility] FEDERAL Advance Directives Documents on File Type Date Recorded Patient Lamina Searcher Expl anation Health Care Proxy 02/03/2024 10:29 [...] Alternate Health Care Agen t Care Teams Geophysical Prospector Relationship Specialty Start Date End Date Jacquelin Santacruz [address] [place] [phone] PCP - General 01/07/24
--- OUTSIDE RECORDS SUMMARY | 2025-02-02 10:51 | XMS_ITS | Encounter Summary ---
Author Organization [facility] Address [address] [place] [address] Care Team Providers Care Director Of Physical Security Name Role Phone Jacquelin Santacruz Leah Primary Care Provider [phone] Encounter Details Date Type Department Care Team (Late st Contact Info) Description 03/23/2024 Orders Only [facility] Interventional Radiology [address] [place] [phone] Naveed Florence MD [address] [place] [address] [phone] Social History Tobacco Use Types Packs/Day Years [...] Appointment [facility] [address] [place] [address] Compliance Program Manager: Clifford Cisneros Jr., MD [address] [place] [address] documented as of this encounter Visit Diagnoses Not on filedocumented in this encounter Care Teams Director Of Physical Security Relationship Specialty Start Date End Date Jacquelin Santacruz [address] [place] [address] PCP - General 01/07/24 documented as of this encounter
--- OUTSIDE RECORDS SUMMARY | 2025-02-02 10:51 | XMS_ITS ---
Author Organization [facility] Address [address] [place] [address] Care Team Providers Care Public Relations Representative Name Role Phone Jacquelin Santacruz Leah Primary Care Provider [phone] Active Problems Problem Noted Date Diagnosed Date [...] TotalDLP 749 mGy 749 mGy 0 mGy [id number] 9.3 mSv 9.3 mSv 0 mSv CTDIvol Max 23.8 mGy 23.8 mGy 0 mGy CTDIvol Min 23.8 mGy 23.8 mGy 0 mGy
--- OUTSIDE RECORDS SUMMARY | 2025-02-02 10:51 | XMS_ITS | Clinical Summary ---
Author Organization [facility] Address [address] [place] [address] Care Team Providers Care Look Out Tower Fire Watcher Name Role Phone Santacruz Jacquelin Lynn Primary Care Provider [phone] Allergies Active Allergy Reactions Criticality Noted Date [...] 9:21 AM EST - 12/16/2024 11:59 PM [facility] Hospital Encounter [facility] [address] [place] [address] Web Content Manager: Jaelyn Pat, AURORA Santo Squamous cell [...] [facility] [address] [place] [address] Web Content Manager: Clifford Cisneros Jr., MD [address] [place] [address] [phone] Health Maintenance Due Date Last Done Comments [...] this topic Medical Devices Implanted Type Area Compound Worker Device Identifier Shelf Expiration Date Model / Serial / Lot Physician Coder Anastomosis Microvascular [place] 4.0mm [place] - [id number] Implanted:Qty: 1 on 02/10/2024 by Jerry Bruce MD at [facility] Implant Left: Neck SYN[employer]IS MI[employer] [facility] ALLIANCE 07/01/2028 [id number] / / [id number] Procedures * Due to [place] PicketReport.com law, this organization might not be sharing negative HIV tests. Procedure Name Priority Date/Time Associated Diagnosis Comments BASIC METABOLIC PANEL Routine 02/17/2024 3:19 AM EDT HEMOGLOBIN A1C Routine 02/12/2024 2:51 AM EDT from Last 3 Months or Most Recently Relevant to Health Maintenance Results * Due to [place] [email or web address].[email or web address] law, this organization might not be sharing negative HIV tests. * (ABNORMAL) Basic Metabolic Panel (02/17/2024 3:19 AM EDT) NA 134(L) 135 - 145 mmol/L 02/17/2024 4:27 AM EDT [facility] K 4.3 3.5 - 5.3 mmol/L 02/17/2024 4:27 AM EDT [facility] Cl 103 97 - 110 mmol/L 02/17/2024 4:27 AM EDT [facility] CO2 23(L) 24 - 32 mmol/L 02/17/2024 4:27 AM EDT [facility] BUN 23 7 - 23 mg/dL 02/17/2024 4:27 AM EDT [facility] Creatinine 0.63 0.50 - 1.20 mg/dL 02/17/2024 4:27 AM EDT [facility] Glucose 248(H) 70 - 99 mg/dL 02/17/2024 4:27 AM EDT [facility] Calcium 8.4(L) 8.7 - 10.7 mg/dL 02/17/2024 4:27 AM EDT [facility] Anion Gap 8 5 - 15 02/17/2024 4:27 AM EDT [facility] eGFR >90 >=60 mL/min/1. 73m2 02/17/2024 4:27 AM EDT [facility] Comment:The estimated glomer ular [...] MD LAB BLOOD ORDERABLES Final Res ult [facility] [address] [place] [address], * (ABNORMAL) Hemoglobin A1c (02/12/2024 2:51 AM EDT) Hemoglobin A1C 7.3(H) <5.7 % of total Hgb 02/18/2024 8:35 AM EDT [facility] Comment: For someone without known diabetes, a [...] (MG/DL) 163 mg/dL 02/18/2024 8:35 AM EDT [facility] eAG (MMOL/L) 9.0 mmol/L 02/18/2024 8:35 AM EDT [facility] Comment: ? This test was performed on the Sal larissa c503 platform. Effective 12/29/23, a change in test platforms from the [place] Sewage Reticulation Drafting Officer to the Sal larissa c503 may have shifted HbA1c results compared to historical results. Based on laboratory validation testing conducted at [facility], the Sal platform relative to the [place] [...] 2:51 AM EDT 02/12/2024 3:02 AM EDT [facility] 02/18/2024 8:35 AM EDT [facility] Received Date: us Lisandro Norwood NP LAB BLOOD ORDERABLES F inal Result DAISY [place] [address] [facility] [address], [place] [address], [facility] [address] [facility] [address] [place] [address], [place] [phone] from Last 3 Months or Most Recently Relevant to Health Maintenance Insurance MEDICARE [facility] FEDERAL Advance Directives Documents on File Type Date Recorded Patient Bag End Sewer Expl anation Health Care Proxy 02/03/2024 10:29 [...] Alternate Health Care Agen t Care Teams Look Out Tower Fire Watcher Relationship Specialty Start Date End Date Jacquelin Santacruz [address] [place] [address] PCP - General 01/07/24
--- OUTSIDE RECORDS SUMMARY | 2025-02-02 10:52 | XMS_ITS | Encounter Summary ---
Author Organization [facility] Address [address] [place] [address] Care Team Providers Care Product Management Specialist Name Role Phone Jacquelin Santacruz Primary Care Provider [phone] Encounter Details Date Type Department Care Team (Late st Contact Info) Description 06/14/2024 Orders Only [facility] Interventional Radiology [address] [place] [address] Dereje Bravo MD [address] [place] [address] [phone] Social History Tobacco Use Types Packs/Day Years [...] Info) Description 04/13/2025 11:15 AM EDT Appointment [facility] Ot[facility]ology Clinic [address] [place] [address] Sawyer Cork Slabs: Clifford Cisneros Jr., MD [address] [place] [address] documented as of this encounter Visit Diagnoses Not on filedocumented in this encounter Care Teams Product Management Specialist Relationship Specialty Start Date End Date Jacquelin Santacruz [address] [place] [address] PCP - General 01/07/24 documented as of this encounter
--- OUTSIDE RECORDS SUMMARY | 2025-02-02 10:52 | XMS_ITS | Encounter Summary ---
Author Organization [facility] Address [address] [place] [address] Care Team Providers Care Glue Cook Name Role Phone Jacquelin Santacruz Primary Care Provider [phone] Encounter Details Date Type Department Care Team (Late st Contact Info) Description 01/14/2024 Orders Only [facility] Interventional Radiology [address] [place] [address] Elvin Rose MD [address] [place], [place] [phone] Social History Tobacco Use Types Packs/Day Years [...] Info) Description 04/13/2025 11:15 AM EDT Appointment [facility] Ot[facility]ology Clinic [address] [place], [place] [phone] Boiler Tender: Clifford Cisneros Jr., MD [address] [place] [address] documented as of this encounter Visit Diagnoses Not on filedocumented in this encounter Care Teams Glue Cook Relationship Specialty Start Date End Date Jacquelin Santacruz [address] [place] [address] PCP - General 01/07/24 documented as of this encounter
== END 2025-02-02 10:19 | disposition home or self-care (01) ==
LOC: HO.HOS 09:52
PROVIDERS: Visit Provider Orthopaedic Surgery
DX: M17.0 Bilateral primary osteoarthritis of knee (principal)
CPT/HCPCS: 20610; 99213

== ENCOUNTER → 2025-02-02 09:51 | Outpatient (BNVA) | payer MEDICARE, BC, SELFPAY | PROVIDERS: Visit Provider Orthopaedic Surgery | DX: M17.0 Bilateral primary osteoarthritis of knee (principal) | CPT/HCPCS: 20610; 99212; J2003; J7318 ==

== ENCOUNTER 2025-05-05 11:30 | Outpatient (AMB) | payer MEDICARE, BC, SELFPAY ==
[2025-05-05 11:41] VITALS: BMI 28.7
--- NOTE | 2025-05-05 11:41 | MHC.OFFVIS ---
Vital Signs 05/05/25 11:41 Height 5 ft 3 in Weight 162 lb BMI 28.7 Intake Visit Reasons: Bilateral knee pains Intake Note: Rosario is a 74 year old female who presents with complaints of bilateral knee pains. She describes her pains as sharp in nature. She has failed the last 3 months of conservative treatment which has included Tylenol, anti-inflammatory medicines, physical therapy exercises and a home exercise program. She has had viscosupplementation injections which gave her fairly good relief. At this point her knee pains are interfering with her activities of daily living and her ability to sleep well through the night. She wishes to hold off on surgery if at all possible. Allergies celecoxib (From CELEBREX) Allergy (Unknown, Verified 05/05/25 11:42) HIVES Sulfa (Sulfonamide Antibiotics) (SULFA(SULFONAMIDE ANTIBIOTICS)) Allergy (Unknown, Verified 05/05/25 11:42) HIVES Medication List - Last Reconciled 05/05/25 by Pieter Nation MD acetaminophen (Tylenol Extra Strength) 500 mg PO ONCE PRN aspirin 81 mg PO DAILY dulaglutide (Trulicity) mg subcut QWEEK levothyroxine 100 mcg PO DAILY metformin 1,000 mg PO BID metoprolol tartrate mg PO pantoprazole 40 mg PO DAILY rosuvastatin 40 mg PO DAILY Physical Exam Vital Signs: BMI result Body Mass Index 28.7 Const Other: Well-nourished well-developed very friendly female awake alert and oriented x3 in no acute distress Extrem Other: Bilateral lower extremity examination shows good capillary refill, no skin lesions noted, normal sensation light touch Bilateral knee examination shows minimal effusions, palpable crepitus with range of motion, pain with range of motion, no instability Results Reviewed Results Reviewed: X-rays of the patient's bilateral knees taken previously show joint space narrowing, subchondral sclerosis, no acute bony abnormalities Assessment & Plan Assessment & Plan (1) Osteoarthritis of left knee: Code(s): M17.12 - Unilateral primary osteoarthritis, left knee Category: Medical (2) Osteoarthritis of right knee: Code(s): M17.11 - Unilateral primary osteoarthritis, right knee Category: Medical Plan Ms. Mejía presents with bilateral knee pains due to osteoarthritis. I had a lengthy discussion with the patient regarding the treatment options. She wishes to hold off on surgery for as long as possible. I agree with this plan. I will see whether or not the patient's insurance company will cover a another viscosupplementation injection, such as Durolane, for both of her knees. I will see her back once the injections are available. Feel free to call me at any time should questions regarding her orthopedic management arise. I spent 21 minutes in reviewing the patient's records and imaging studies, seeing the patient and documenting in the medical record. Coding Level of Care Code Est Pt Level 3 (42473) Complex EM visit Add On G2211 Diagnoses Osteoarthritis of left knee M17.12 Osteoarthritis of right knee M17.11
--- OUTSIDE RECORDS SUMMARY | 2025-05-05 12:10 | XMS_ITS ---
[facility] Encounters Encounter Type Encounter Reason Primary Diagnosis Location Date Emergency ABDOMINAL PAIN Unspecified abdo geri pain [facility] 08/01/2024 Care Team Organization Name Specialty Phone Email Start Date End Da te Terminated: [facility] 08/01/2024
--- OUTSIDE RECORDS SUMMARY | 2025-05-05 12:10 | XMS_ITS ---
Author Organization [facility] Address [address] [place] [address] Care Team Providers Care Wwe Wrestler Name Role Phone Jacquelin Santacruz Leah Primary Care Provider [phone] Active Problems Problem Noted Date Diagnosed Date [...] TotalDLP 749 mGy 749 mGy 0 mGy [id number] 9.3 mSv 9.3 mSv 0 mSv CTDIvol Max 23.8 mGy 23.8 mGy 0 mGy CTDIvol Min 23.8 mGy 23.8 mGy 0 mGy
== END 2025-05-05 12:09 | disposition home or self-care (01) ==
LOC: HO.HOS 11:31
PROVIDERS: Visit Provider Orthopaedic Surgery
DX: M17.0 Bilateral primary osteoarthritis of knee (principal)
CPT/HCPCS: 99213; G2211

== ENCOUNTER → 2025-05-05 11:30 | Outpatient (BNVA) | payer MEDICARE, BC, SELFPAY | PROVIDERS: Visit Provider Orthopaedic Surgery | DX: M17.0 Bilateral primary osteoarthritis of knee (principal) | CPT/HCPCS: 99212 ==

== ENCOUNTER 2025-08-04 13:17 | Outpatient (AMB) | payer MEDICARE, BC, SELFPAY ==
--- NOTE | 2025-08-04 13:22 | A.OFFVIS_ITS ---
Vital Signs 08/04/25 13:25 Height 5 ft 3 in Weight 162 lb BMI 28.7 Intake Visit Reasons: INJ- Bilateral Knee Durolane 02/02/25 Intake Note: Rosario is a 74 year old woman who presents today in office for her osteoarthritis of her bilateral knees and bilateral Durolane injections. Consent signed in office. She has tried physical therapy exercises which aggravated her pain. She has also tried Tylenol and anti-inflammatory medicines which gave her minimal relief. She wishes to hold off on surgery if at all possible. Allergies celecoxib (From CELEBREX) Allergy (Unknown, Verified 08/04/25 13:25) HIVES Sulfa (Sulfonamide Antibiotics) (SULFA(SULFONAMIDE ANTIBIOTICS)) Allergy (Unknown, Verified 08/04/25 13:25) HIVES Medication List - Last Reconciled 08/04/25 by Pieter Nation MD acetaminophen (Tylenol Extra Strength) 500 mg PO ONCE PRN aspirin 81 mg PO DAILY dulaglutide (Trulicity) mg subcut QWEEK levothyroxine 100 mcg PO DAILY metformin 1,000 mg PO BID metoprolol tartrate mg PO pantoprazole 40 mg PO DAILY rosuvastatin 40 mg PO DAILY [facility] Social History (Updated 08/04/25 @ 13:25 by ANNEL Hopper) Current occupational status: retired Current occupation: rt hand Physical Exam Vital Signs: BMI result Body Mass Index 28.7 Extrem Other: Bilateral knee examination shows minimal effusions, palpable crepitus with range of motion, pain with range of motion, no instability Office Procedures AMB Joint Injection/Aspiration Joint Injection/Aspiration Primary Site: right knee Prep: site was prepped using aseptic technique Injected: 60 mg of (Durolane viscosupplementation) and 1% plain lidocaine Procedure: The patient tolerated the procedure well Coding 20051 - Large joint Procedure code (CPT) selection complete AMB Joint Injection/Aspiration Joint Injection/Aspiration Primary Site: left knee Prep: site was prepped using aseptic technique Injected: 60 mg of (Durolane viscosupplementation) and 1% plain lidocaine Procedure: The patient tolerated the procedure well Coding 27991 - Large joint Procedure code (CPT) selection complete Results Reviewed Results Reviewed: X-rays of the patient's bilateral knees taken previously show joint space narrowing, subchondral sclerosis, no acute bony abnormalities Assessment & Plan Assessment & Plan (1) Osteoarthritis of left knee: Code(s): M17.12 - Unilateral primary osteoarthritis, left knee Category: Medical (2) Osteoarthritis of right knee: Code(s): M17.11 - Unilateral primary osteoarthritis, right knee Category: Medical Plan Ms. Duran presents with bilateral knee pains due to osteoarthritis. The risks and benefits of bilateral knee Durolane viscosupplementation injections were discussed at length with the patient. The patient wished to proceed. She tolerated the injections well. She will continue with her home exercise program. She will contact me prior to her follow-up appointment in 3 months should any questions or concerns arise. Feel free to call me at any time should questions regarding her orthopedic management arise. I spent 21 minutes in reviewing the patient's records and imaging studies, seeing the patient and documenting in the medical record. Orders: Orders AMB Joint Injection/Aspiration Today M17.12 - Unilateral primary osteoarthritis , left knee AMB Joint Injection/Aspiration Today M17.11 - Unilateral primary osteoarthritis, right knee Coding Level of Care Code Est Pt Level 3 (73716) Complex EM visit Add On G2211 Diagnoses Osteoarthritis of left knee M17.12 Osteoarthritis of right knee M17.11 CPT Codes Coding - 15274 Large joint: 83938 - Large joint ([id number]) Coding - 97977 Large joint: 14824 - Large joint ([id number])
[2025-08-04 13:25] VITALS: BMI 28.7
== END 2025-08-04 13:38 | disposition home or self-care (01) ==
LOC: HO.HOS 13:18
PROVIDERS: Visit Provider Orthopaedic Surgery
DX: M17.0 Bilateral primary osteoarthritis of knee (principal)
CPT/HCPCS: 20610; 99213

== ENCOUNTER → 2025-08-04 13:17 | Outpatient (BNVA) | payer MEDICARE, BC, SELFPAY | PROVIDERS: Visit Provider Orthopaedic Surgery | DX: M17.0 Bilateral primary osteoarthritis of knee (principal) | CPT/HCPCS: 20610; 99212; J2003; J7318 ==